=== PATIENT | male | born 1980 | race Caucasian/White ===

== ENCOUNTER 2017-07-07 22:25 | Emergency (ER) | payer MEDICAID ==
[~2017-07-07] VITALS: Ht 185.4 cm; Wt 81.6 kg
[2017-07-07] MEDS: HYDROCODONE/APAP 5-325MG TABLET PO ONE (23:30)
[2017-07-07] MEDS ORDERED: HYDROCODONE/APAP 5-325MG TABLET ONE (23:44)
[2017-07-08 00:57] VITALS: BP 118/64
--- NOTE | 2017-07-08 00:57 | NUR ---
Patient discharged to home in stable conditon. Written and verbal after care instructions given. Patient verbalizes understanding of instructions.
== END 2017-07-08 00:58 | disposition home or self-care (01) ==
LOC: ER 22:28
DX: S92.354A Nondisplaced fracture of fifth metatarsal bone, right foot, initial encounter for closed fracture (principal); X50.9XXA Other and unspecified overexertion or strenuous movements or postures, initial encounter; Y93.89 Activity, other specified; Y92.89 Other specified places as the place of occurrence of the external cause; Y99.8 Other external cause status
CPT/HCPCS: 73630; A4663